=== PATIENT | male | born 1960 | race African-American/Black ===

== ENCOUNTER 2020-12-10 05:00 | Inpatient (IN) | payer MEDICAID, OTHER ==
[~2020-12-10] VITALS: Ht 182.9 cm; Wt 71.2 kg
[2020-12-10 06:04] LABS: BASOPHILS % 1.2 % (0.0-2.0); EOSINOPHILS % 0.8 % (0.0-5.0); LYMPHOCYTES % 37.7 % (20.0-50.0); MEAN CORPUSCULAR HEMOGLOBIN 31.5 pg (28.0-32.0); MEAN CORPUSCULAR VOLUME 92.2 fL (80.0-94.0); MEAN PLATELET VOLUME 8.7 fl (7.4-10.4); MONOCYTES % 10.7 % (2.0-8.0); NEUTROPHILS % 49.6 % (40.0-76.0); PLATELET 212 x1000/uL (130-400); RED BLOOD CELL COUNT 4.12 mill/uL (4.7-6.1); RED CELL DISTRIBUTION WIDTH 13.4 % (11.6-14.6)
[2020-12-10 06:08] LABS: PROTHROMBIN TIME 10.6 sec (9.6-11.0)
[2020-12-10 06:12] LABS: CHLORIDE 107 mEq/L (98-107)
[2020-12-10] MEDS ORDERED: PIPERACILLIN/TAZ 3.375G PREMIX 50 ML IV ONE (07:00)
[2020-12-10] MEDS ORDERED: VANCOMYCIN 1 G PREMIX 200 ML IV ONE (07:00)
[2020-12-10] MEDS ORDERED: SODIUM CHLORIDE 0.9% 1000ML BAG (SEPSIS BOLUS) IV ONE (07:00)
[2020-12-10 09:28] LABS: CLARITY URINE CLEAR (CLEAR); COLOR URINE YELLOW (YELLOW); KETONES URINE 1+ (NEGATIVE); LEUKOCYTE ESTERASE URINE NEGATIVE (NEGATIVE); NITRITE URINE NEGATIVE (NEGATIVE); OCCULT BLOOD URINE NEGATIVE (NEGATIVE); PROTEIN URINE NEGATIVE (NEGATIVE); SPECIFIC GRAVITY URINE 1.007 (1.005-1.030); UROBILINOGEN URINE 0.2 E.U./dL (0.2-1.0)
[2020-12-10 20:00] VITALS: BP 127/77
[2020-12-10 21:00] VITALS: BP 127/77
[2020-12-10] MEDS ORDERED: POTASSIUM CHLORIDE 20MEQ TABLET SR PO SCH (21:45)
[2020-12-10] MEDS ORDERED: IBUP-2029 PO (23:10)
[2020-12-10] MEDS ORDERED: NALOXONE HCL 0.4MG/ML VIAL IV PRN (23:45)
[2020-12-11] MEDS ORDERED: ACETAMINOPHEN 325MG TABLET PO PRN
[2020-12-11] MEDS ORDERED: HYDROCODONE/ACETAMINOPHEN 5/325MG TABLET PO PRN
[2020-12-11] MEDS ORDERED: DOCUSATE SODIUM 100MG CAPSULE PO PRN
[2020-12-11] MEDS ORDERED: IPRATROPIUM/ALBUTEROL 0.5-3(2.5)MG/3ML NEB HHN PRN
[2020-12-11] MEDS ORDERED: ONDANSETRON HCL 4MG/2ML INJ IV PRN
[2020-12-11 00:39] VITALS: BP 103/52
[2020-12-11 04:00] VITALS: BP_SYST 113; BP_SYST 151; BP_DIAS 56; BP_DIAS 68
[2020-12-11 06:52] LABS: BASOPHILS % 0.8 % (0.0-2.0); EOSINOPHILS % 2.4 % (0.0-5.0); HEMATOCRIT. 40.2 % (42.0-52.0); HEMOGLOBIN. 13.3 g/dL (14.0-18.0); LYMPHOCYTES % 35.8 % (20.0-50.0); MEAN CORPUSCULAR HEMOGLOBIN 30.9 pg (28.0-32.0); MEAN CORPUSCULAR VOLUME 93.7 fL (80.0-94.0); MEAN PLATELET VOLUME 9.2 fl (7.4-10.4); MONOCYTES % 11.1 % (2.0-8.0); NEUTROPHILS % 49.9 % (40.0-76.0); PLATELET 223 x1000/uL (130-400); RED BLOOD CELL COUNT 4.29 mill/uL (4.7-6.1); RED CELL DISTRIBUTION WIDTH 13.1 % (11.6-14.6)
[2020-12-11 07:11] LABS: CHLORIDE 110 mEq/L (98-107)
[2020-12-11 07:59] VITALS: BP 106/61
[2020-12-11] MEDS ORDERED: ENOXAPARIN 40MG/0.4ML SYR SUBCUT SCH (09:00)
[2020-12-11] MEDS ORDERED: PANTOPRAZOLE 40MG DR TABLET PO SCH (09:00)
[2020-12-11 11:20] VITALS: BP 105/59
[2020-12-11 13:08] LABS: CLARITY URINE CLEAR (CLEAR); COLOR URINE YELLOW (YELLOW); KETONES URINE NEGATIVE (NEGATIVE); LEUKOCYTE ESTERASE URINE NEGATIVE (NEGATIVE); NITRITE URINE NEGATIVE (NEGATIVE); OCCULT BLOOD URINE NEGATIVE (NEGATIVE); PROTEIN URINE NEGATIVE (NEGATIVE); SPECIFIC GRAVITY URINE 1.011 (1.005-1.030); UROBILINOGEN URINE 0.2 E.U./dL (0.2-1.0)
[2020-12-11 13:27] LABS: CANNABINOID URINE SCREEN NEGATIVE (NEGATIVE)
[2020-12-11 13:29] LABS: METHADONE URINE SCREEN NEGATIVE (NEGATIVE)
[2020-12-11 13:34] LABS: *AMPHETAMINES SCREEN URINE NEGATIVE (NEGATIVE); *BARBITURATES SCREEN URINE NEGATIVE (NEGATIVE); PHENCYCLIDINE URINE SCREEN NEGATIVE (NEGATIVE)
[2020-12-11 13:35] LABS: *BENZODIAZEPINES SCREEN URINE NEGATIVE (NEGATIVE); *COCAINE SCREEN URINE PRESUMTIVE POSITIVE (NEGATIVE)
[2020-12-11 13:37] LABS: OPIATES URINE SCREEN NEGATIVE (NEGATIVE)
[2020-12-11 15:26] VITALS: BP 105/59
[2020-12-11 15:41] VITALS: BP 105/65
== END 2020-12-11 16:15 | disposition home or self-care (01) | DRG 48 ==
LOC: ER 05:00 → 6WST 10:00 → EDBEDREQTM 10:07 → EDBEDREQ 10:07 → ENRESERV 16:55
PROVIDERS: ADMIT Internal Medicine; ATTEND Internal Medicine
DX: G90.8 Other disorders of autonomic nervous system (principal); E44.1 Mild protein-calorie malnutrition; I95.2 Hypotension due to drugs; E87.6 Hypokalemia; F17.210 Nicotine dependence, cigarettes, uncomplicated; M19.90 Unspecified osteoarthritis, unspecified site; F12.10 Cannabis abuse, uncomplicated; T50.905A Adverse effect of unspecified drugs, medicaments and biological substances, initial encounter; Z68.21 Body mass index [BMI] 21.0-21.9, adult; Y92.89 Other specified places as the place of occurrence of the external cause; Z71.51 Drug abuse counseling and surveillance of drug abuser
CPT/HCPCS: 36415; 71045; 80048; 80053; 80076; 80305; 81003; 83605; 83735; 84100; 84145; 84484; 85025; 93005; 99291; J1650; J2543; J3370; J7030